=== PATIENT | female | born 1935 | race Caucasian/White ===

== ENCOUNTER → 2016-09-18 | Outpatient (REF) | payer MEDICARE ==
[2016-09-18 11:44] LABS: BASO % 0.5 % (0.0-1.0); EOS # 0.1 K/mm3 (0.0-0.50); LARGE UNSTAINED CELL # 0.1 K/mm3 (0.0-0.4); LARGE UNSTAINED CELL % 1.5 % (0.0-4.0); LYMPH # 1.7 K/mm3 (1.5-4.5); MEAN CORPUSCULAR HEMOGLOBIN 19.4 pg (27.0-33.0); MEAN CORPUSCULAR HGB CONC 30.5 g/dl (32.0-36.5); MEAN CORPUSCULAR VOLUME 63.6 fl (80.0-96.0); MONO # 0.4 K/mm3 (0.0-0.8); MONO % 5.2 % (0.0-5.0); NEUTROPHILS # 4.8 K/mm3 (1.8-7.7); NEUTROPHILS % 66.9 % (36.0-66.0); PLATELET COUNT, AUTOMATED 303 k/mm3 (150-450); RED CELL DISTRIBUTION WIDTH 13.9 % (11.5-14.5); WHITE BLOOD COUNT 7.2 K/mm3 (4.0-10.0)
[2016-09-18 11:50] LABS: ADD MORPHOLOGY? YES
[2016-09-18 12:02] LABS: ALBUMIN/GLOBULIN RATIO 1.25 (1.00-1.93); ALKALINE PHOSPHATASE 86 U/L (45-117); ALT/SGPT 27 U/L (12-78); ANION GAP 9 MEQ/L (8-16); AST/SGOT 26 U/L (15-37); BILIRUBIN,TOTAL 0.4 MG/DL (0.2-1.0); BLOOD UREA NITROGEN 15 MG/DL (7-18); CALCIUM LEVEL 9.6 MG/DL (8.8-10.2); CARBON DIOXIDE LEVEL 29 MEQ/L (21-32); CHLORIDE LEVEL 104 MEQ/L (98-107); CREATININE FOR GFR 0.73 MG/DL (0.55-1.02); GLOMERULAR FILTRATION RATE > 60.0 (>32); GLUCOSE, FASTING 117 MG/DL (83-110); POTASSIUM SERUM 4.4 MEQ/L (3.5-5.1); SODIUM LEVEL 142 MEQ/L (136-145); TOTAL PROTEIN 7.2 GM/DL (6.4-8.2)
[2016-09-18 12:09] LABS: HYPOCHROMASIA 1+; MICROCYTOSIS 3+
== END ==
LOC: M SFHCCLAY 08:36
PROVIDERS: ATTEND Family Medicine
DX: D56.9 Thalassemia, unspecified (principal); I10 Essential (primary) hypertension
CPT/HCPCS: 80053; 83540; 85025; G0463

== ENCOUNTER 2017-01-15 18:29 | Inpatient (IN) | payer MEDICARE ==
[~2017-01-15] VITALS: Ht 152.4 cm; Wt 83.5 kg
[2017-01-15] MEDS ORDERED: LISI2.5T3 PO (18:41)
[2017-01-15] MEDS ORDERED: HYDR-3713 PO (18:41)
[2017-01-15] MEDS ORDERED: METO50TA7 PO (18:41)
--- NOTE | 2017-01-15 19:32 | REP ---
CHEST, TWO VIEWS: COMPARISON: 01/11/2013 Two views of the chest are performed and demonstrate infiltrate in right middle lobe. There appears to be a small right pleural effusion as well. Heart is normal in size. There is some calcification of the thoracic aorta. The mediastinal silhouette is otherwise unremarkable. There is osteopenia with mild degenerative changes of the spine. IMPRESSION: Right middle lobe infiltrate. Small right effusion. Followup to resolution is recommended. Signed by Navarro Finn MD 01/15/2017 08:20 P
[2017-01-15 20:16] LABS: BASO % 0.3 % (0.0-1.0); EOS # 0.2 K/mm3 (0.0-0.50); EOS % 1.5 % (0.0-3.0); LARGE UNSTAINED CELL # 0.2 K/mm3 (0.0-0.4); LARGE UNSTAINED CELL % 1.6 % (0.0-4.0); LYMPH # 2.4 K/mm3 (1.5-4.5); LYMPH % 14.6 % (24.0-44.0); MEAN CORPUSCULAR HEMOGLOBIN 19.9 pg (27.0-33.0); MEAN CORPUSCULAR HGB CONC 32.2 g/dl (32.0-36.5); MEAN CORPUSCULAR VOLUME 61.6 fl (80.0-96.0); MONO # 1.2 K/mm3 (0.0-0.8); MONO % 8.2 % (0.0-5.0); NEUTROPHILS % 73.8 % (36.0-66.0); PLATELET COUNT, AUTOMATED 289 k/mm3 (150-450); RED CELL DISTRIBUTION WIDTH 13.2 % (11.5-14.5); WHITE BLOOD COUNT 14.8 K/mm3 (4.0-10.0)
[2017-01-15 20:22] LABS: ANION GAP 7 MEQ/L (8-16); BLOOD UREA NITROGEN 13 MG/DL (7-18); CARBON DIOXIDE LEVEL 27 MEQ/L (21-32); CHLORIDE LEVEL 97 MEQ/L (98-107); CREATININE FOR GFR 0.56 MG/DL (0.55-1.02); GLOMERULAR FILTRATION RATE > 60.0 (>32); GLUCOSE, FASTING 131 MG/DL (83-110); POTASSIUM SERUM 4.2 MEQ/L (3.5-5.1); SODIUM LEVEL 131 MEQ/L (136-145)
[2017-01-15 20:51] LABS: ADD MORPHOLOGY? YES; ERYTHROCYTE SEDIMENTATION RATE 46 mm/hr (0-30)
[2017-01-15] MEDS ORDERED: AZITHROMYCIN INJ 500 MG, VIAL MATE ADAPTER 1 EACH in D5W 250 ML IV ONE (21:15)
[2017-01-15] MEDS ORDERED: cefTRIAXone SOD 1 GM in D5W MINI-BAG PLUS 50 ML IV ONE (21:15)
[2017-01-15 21:25] LABS: HYPOCHROMASIA 1+; MICROCYTOSIS 4+
[2017-01-15] MEDS ORDERED: SYST1SOL OU (22:01)
[2017-01-15] MEDS ORDERED: hydrALAZINE INJ 20 MG/ML VIAL IV ONE (22:15)
[2017-01-15] MEDS ORDERED: ONDANSETRON 4MG/2ML VIAL (J2405) IV PRN (22:15)
[2017-01-15] MEDS ORDERED: PERCOCET 5MG/325MG TAB PO PRN (22:15)
[2017-01-15] MEDS ORDERED: POLYVINYL ALCOHOL OPHTH SOLN 15 ML(LIQUITEARS) OU PRN (22:15)
[2017-01-15] MEDS ORDERED: MORPHINE 2 MG/ML 1ML SYRINGE IV PRN (22:15)
[2017-01-15] MEDS ORDERED: NS 1,000 ML IV SCH (22:30)
--- NOTE | 2017-01-15 23:01 | HPE ---
DATE OF ADMISSION: 01/15/2017 PRIMARY CARE PROVIDER: Dr. Basilio Sood CHIEF COMPLAINT: Fevers, chills, coughing. HISTORY OF THE PRESENT ILLNESS This is an 81-year-old female patient with underlying medical history of hypertension, thalassemia, presented to the hospital with a two-day history of fevers and chills, generalized weakness and tiredness. Temperature taken at home of 101.3. Also reported since Wednesday with a cough productive of clear sputum with nasal congestion. Patient recently on Wednesday had a procedure on the right middle finger done for some soft nodule removal, was not under general anesthesia and the area seemed not to be worsened with worsening swelling or pain, or redness. The patient also a week ago had eye surgery for macular degeneration, right eye, and since then has been doing well. The patient also reported some myalgia, reported stuffy nose. Denies any sick contacts, recent travel. Procedure that was done on Wednesday for the finger was elective. Generally, the patient has been healthy at baseline, in no acute distress, taking some Tylenol at home. Denies any chest pain, pressure or discomfort. Denies palpitations. Denies a history of coronary artery disease or cerebrovascular disease. ALLERGIES: AMOXICILLIN and PENICILLIN. PAST MEDICAL HISTORY: Hypertension, thalassemia. PAST SURGICAL HISTORY: Right kidney pyeloplasty in 1986, right hand middle finger surgery that was recent on Wednesday and eye surgery, right eye, macular degeneration. FAMILY HISTORY: Father at age 75 secondary to motor vehicle accident, with also diabetes. Mother at 72 years old from uterine cancer. SOCIAL HISTORY: The patient lives at home with family, quit smoking in 1979, drinks a cup of wine once daily. Denies any history of drinking problem or alcohol withdrawal. Denies any illicit drug use. Currently retired REVIEW OF SYSTEMS: Reported cough, fevers, chills, fatigue. All other review of systems are negative. HOME MEDICATIONS: - acetaminophen/hydrocodone 5/325 every 6 hours as needed - lisinopril 2.5 mg by mouth daily - metoprolol 50 mg by mouth daily - Systane eye drops as needed PHYSICAL EXAMINATION: VITAL SIGNS: Temperature 99.1, pulse 72, respirations 16, blood pressure 203/84, pulse oximetry 94% on room air. GENERAL: Patient alert and oriented times three, in no acute distress, pleasant. HEENT: Normocephalic, atraumatic. Left-sided facial droop intermittently, as per family has been chronic. No other facial symmetry. Cranial nerves II-XII grossly intact. PULMONARY: Right-sided mild rhonchi. No wheeze. CARDIAC: Regular rate and rhythm. Normal S1, S2. ABDOMEN: Soft, nontender. Positive bowel sounds. EXTREMITIES: No edema bilateral lower extremities. NEUROLOGIC: Able to move all four extremities. Strength 5/5 bilateral upper and lower. Cranial nerves: Other than intermittent left-sided facial droop, all other cranial nerves have been negative. As per family, the left-sided facial droop has been chronic. X-ray shows right middle lobe infiltrates, small pleural effusion. LABORATORY: WBC 14.8, hemoglobin and hematocrit 10.7/33.1, platelets 289. Chemistry: Sodium 131, potassium 4.2, chloride 97, bicarbonate 27, BUN 13, creatinine 0.56, lactic acid 1, C-reactive protein 14.8. UA negative. ASSESSMENT AND PLAN: This is an 81-year-old female patient with underlying medical history of hypertension, thalassemia, admitted with fevers, healthcare-associated bacterial pneumonia. PROBLEMS: 1. Right-sided healthcare-associated bacterial pneumonia with fevers and leukocytosis. Fevers at home of 101.3. Sepsis. IV fluids for gentle hydration. Lactic acid appreciated. Blood culture, sputum culture, UA appreciated. Given recent procedures, will place the patient on azithromycin, cefepime and vancomycin, methicillin-resistant Staphylococcus aureus (MRSA) screening, respiratory panel. Followup C-reactive protein. 2. Hypertensive urgency. As per family, the patient's baseline blood pressure is running at 160/80. Will give one dose of hydralazine IV, goal blood pressure of 160/80 for the next 24 hours. Increase lisinopril to 2.5 mg by mouth twice a day , metoprolol 25 mg by mouth twice a day, adjust as needed. Hydralazine 10 mg IV given in the emergency room. Continue to monitor. 3. Thalassemia. Continue to monitor. Outpatient followup. 4. Recent right middle finger surgery. Right middle finger has been examined.Only mildly swollen, no erythema, no exudate. Will get x-ray for further evaluation. Currently likely not the source of infection. Will continue to monitor closely. Treatment for pneumonia as above. 5. Deep vein thrombosis (DVT) prophylaxis. Lovenox subcu. DISPOSITION PLANNING: Pending clinical improvement, cultures. MTDD
--- NOTE | 2017-01-15 23:06 | PHACANCOPD ---
PHARMACY VANCOMYCIN DOSING Pt Demographics Demographics Patient Age:81 , Weight:70.400 , Gender: female Adjusted Body Weight Date: 01/15/17, Adjusted Body Weight: [70.4] Kg Events Past 24 Hours Events Past 24 Hours: NO: Dialysis, Diuretic Therapy, Change in CrCl, Fever, Elevation in WBC, Pending Diagnostics, Pending Procedures, Other Vancomycin Vancomycin indication: HCAP Vancomycin Target Ranges: 15-20 mcg/ml Vancomycin Load Y/N: Yes Load Dose Date Time Vancomycin Load Dose: 1.5G IV Date: 01/16/17 Time: 00:00 Vancomycin Dose Date: 01/15/17. Current Vancomycin Dose: [1G IV Q12H @12:00] Intermittent Dosing?: No Labs Labs Item Value Date Time White Blood Count 14.8 K/mm3 H 01/15/171948 Neutrophils (%) (Auto) 73.8 % H 01/15/171948 Creatinine 0.56 MG/DL 01/15/171948 Vital Signs Label Value Date Time Patient Temperature 99.1 degrees F 01/15/172100 Temperature Source Temporal 01/15/172100 Blood Pressure Assessment 203/84 (123) 01/15/172100 Source Automatic Cuff (NIBP) Micro Microbiology 01/15/17 Blood Culture, Received Pending 01/15/17 Blood Culture, Received Pending 01/15/17 Urine Culture, Received Pending Creatinine Clearance Date:01/15/17. Creatinine Clearance: [59.5ML/MIN]. Pending Labs URINE AND BLOOD CULTURES Assessment and Plan Maintaining Current Dose?: Yes Reason for dose change: No Dose Change Pharmacist Note Pharmacist Note Date: 01/15/17. Pharmacist note: PT is an 81 year old female being treated for HCAP goal trough 15-20mcg/ml. Pt has no history of vancomycin therapy here at [facility] in the past. Pt is also being treated with azithromycin 500mg iv q24h and cefepime 2g iv q12h. To achieve goal trough a 1.5g loading dose was started at 00:00 and will be followed with maintenance dosing of 1g iv q12h @12:00 . We will continue to monitor and adjust dose as needed. [facility] Jan 15, 2017 23:06
[2017-01-15] MEDS: ACETAMINOPHEN TAB 650MG DOSE (2X325MG) PO PRN (23:53)
[2017-01-16] MEDS ORDERED: VANCOMYCIN HCL 500 MG in D5W MINI-BAG PLUS 100 ML IV ONE (01:00)
[2017-01-16] MEDS: VANCOMYCIN HCL 1,000 MG, VIAL MATE ADAPTER 1 EACH in D5W 250 ML IV SCH ×2 (01:13→12:00)
[2017-01-16] MEDS: LISINOPRIL *2.5 MG* TAB PO SCH ×3 (01:14→21:51)
[2017-01-16 01:15] VITALS: BP 136/64
[2017-01-16 06:00] VITALS: BP 129/62
[2017-01-16 06:57] LABS: MEAN CORPUSCULAR HEMOGLOBIN 19.9 pg (27.0-33.0); MEAN CORPUSCULAR HGB CONC 32.3 g/dl (32.0-36.5); MEAN CORPUSCULAR VOLUME 61.5 fl (80.0-96.0); WHITE BLOOD COUNT 13.7 K/mm3 (4.0-10.0)
[2017-01-16 07:07] LABS: ANION GAP 5 MEQ/L (8-16); BLOOD UREA NITROGEN 15 MG/DL (7-18); CALCIUM LEVEL 8.3 MG/DL (8.8-10.2); CARBON DIOXIDE LEVEL 28 MEQ/L (21-32); CHLORIDE LEVEL 97 MEQ/L (98-107); CREATININE FOR GFR 0.76 MG/DL (0.55-1.02); GLOMERULAR FILTRATION RATE > 60.0 (>32); GLUCOSE, FASTING 131 MG/DL (83-110); MAGNESIUM LEVEL 2.3 MG/DL (1.8-2.4); POTASSIUM SERUM 3.9 MEQ/L (3.5-5.1); SODIUM LEVEL 130 MEQ/L (136-145)
[2017-01-16] MEDS: guaiFENesin ER 600 MG TAB PO SCH ×2 (08:52→20:22)
[2017-01-16] MEDS: LACTOBACILLUS ACIDOPHILUS CAP (BACID) PO SCH ×3 (08:52→17:52)
[2017-01-16] MEDS: SENOKOT S TAB PO SCH ×2 (08:52→20:22)
[2017-01-16] MEDS: METOPROLOL TART 25 MG TABLET PO SCH ×2 (08:52→21:51)
[2017-01-16] MEDS: ENOXAPARIN 40 MG/0.4 ML SYRINGE (J1650) SC SCH ×2 (08:53→09:09)
[2017-01-16] MEDS: CEFEPIME HCL 2 GM in D5W MINI-BAG PLUS 50 ML IV SCH ×2 (08:53→21:52)
[2017-01-16] MEDS: ACETAMINOPHEN TAB 650MG DOSE (2X325MG) PO PRN ×2 (12:01→20:23)
[2017-01-16 14:00] VITALS: BP 128/57
--- NOTE | 2017-01-16 14:24 | REP ---
RIGHT HAND SERIES: Four views of the right hand are performed. There is no acute fracture or dislocation. There is mild diffuse narrowing of the metacarpophalangeal joints and interphalangeal joints. No osseous destruction is seen. IMPRESSION: Mild degenerative changes. Signed by Navarro Finn MD 01/16/2017 03:22 P
--- NOTE | 2017-01-16 20:04 | ECGEPIP ---
Stationary ECG Study [facility] - ED Test Date: 2017-01-15 Pat Name: ALINE GUTIERREZ Department: Room: [place] [address] Gender: F Cancer Registry Coordinator: ronit : 1935 Requested By: NIRANJAN SANDERS Order Number: [id number] Reading MD: Laura Monteiro Measurements Intervals [place] Rate: 100 P: 49 GA: 140 QRS: -35 QRSD: 130 T: 130 QT: 353 QTc: 456 Interpretive Statements SINUS TACHYCARDIA POSSIBLE LEFT ATRIAL ENLARGEMENT MARKED LEFT AXIS DEVIATION LEFT BUNDLE BRANCH BLOCK NO PRIOR FOR COMPARISON Electronically Signed On 01-16-2017 20:04:08 EDT by Laura Monteiro
[2017-01-16 22:00] VITALS: BP 132/61
[2017-01-16] MEDS ORDERED: AZITHROMYCIN INJ 500 MG, VIAL MATE ADAPTER 1 EACH in D5W 250 ML IV SCH (23:00)
[2017-01-17] MEDS: VANCOMYCIN HCL 1,000 MG, VIAL MATE ADAPTER 1 EACH in D5W 250 ML IV SCH ×3 (00:06→20:31)
[2017-01-17 06:00] VITALS: BP 163/68
[2017-01-17 06:50] LABS: MEAN CORPUSCULAR HEMOGLOBIN 19.6 pg (27.0-33.0); MEAN CORPUSCULAR HGB CONC 31.5 g/dl (32.0-36.5); MEAN CORPUSCULAR VOLUME 62.2 fl (80.0-96.0); RED CELL DISTRIBUTION WIDTH 12.8 % (11.5-14.5); WHITE BLOOD COUNT 12.7 K/mm3 (4.0-10.0)
[2017-01-17 07:12] LABS: ANION GAP 7 MEQ/L (8-16); BLOOD UREA NITROGEN 14 MG/DL (7-18); CALCIUM LEVEL 8.5 MG/DL (8.8-10.2); CARBON DIOXIDE LEVEL 26 MEQ/L (21-32); CHLORIDE LEVEL 97 MEQ/L (98-107); CREATININE FOR GFR 0.57 MG/DL (0.55-1.02); GLOMERULAR FILTRATION RATE > 60.0 (>32); GLUCOSE, FASTING 132 MG/DL (83-110); MAGNESIUM LEVEL 2.4 MG/DL (1.8-2.4); POTASSIUM SERUM 4.3 MEQ/L (3.5-5.1); SODIUM LEVEL 130 MEQ/L (136-145)
[2017-01-17] MEDS ORDERED: ALBUTEROL SULFATE 2.5 MG/0.5 ML INH NEB SOLN INH PRN (07:30)
[2017-01-17] MEDS: ALBUTEROL SULFATE 2.5 MG/0.5 ML INH NEB SOLN INH SCH ×4 (08:10→19:32)
[2017-01-17 08:16] VITALS: O2SAT 95
[2017-01-17] MEDS: guaiFENesin ER 600 MG TAB PO SCH ×2 (08:57→20:31)
[2017-01-17] MEDS: METOPROLOL TART 25 MG TABLET PO SCH ×2 (08:57→20:31)
[2017-01-17] MEDS: LACTOBACILLUS ACIDOPHILUS CAP (BACID) PO SCH ×3 (08:57→17:34)
[2017-01-17] MEDS: LISINOPRIL *2.5 MG* TAB PO SCH ×2 (08:57→20:31)
[2017-01-17] MEDS: ENOXAPARIN 40 MG/0.4 ML SYRINGE (J1650) SC SCH (08:58)
[2017-01-17] MEDS: SENOKOT S TAB PO SCH ×2 (08:58→20:31)
--- NOTE | 2017-01-17 09:29 | IPN ---
DATE: 01/16/2017 Ms. Quiroz is feeling much better this morning. She has no complaints. She is going to eat this morning. She walked herself to the bathroom and got into bed with minimal assistance in my presence. Temperature is 96.6, pulse 62, respiratory rate 18, blood pressure 129/62, and 97% on 2 liters. Ins and outs notable for a positive fluid balance of 530 at this point. Weight is 76.2 kg with a body mass index of 32.8. She is awake, appropriately interactive, somewhat hard of hearing, but wearing hearing aids. Neck supple. Breathing is symmetrical. Somewhat crackly in the right base. Heart: Normal S1, S2. She has a systolic blowing murmur noted. Abdomen soft, doughy, nontender. White cell count 13.7, hemoglobin 9.7, and platelets of 269. BUN 15, creatinine 0.76, sodium 130, CRP 14.4. ASSESSMENT: 81-year-old with a pneumonia which could possibly be health care associated pneumonia based on her recent contact with health care regarding her hand surgery and her ophthalmologic procedure. Continue with broad spectrum antibiotics. Await culture results. I believe we will be able to pull those back to community acquired coverage based on her rate of improvement. The patient had elevated blood pressure. Will monitor her clinically. This is most likely related to her illness. The patient has thalassemia. The patient has had recent right middle finger surgery. The wound is clean, dry and intact. There is no drainage. The patient has appropriate deep vein thrombosis (DVT) prophylaxis. HARVINDER
[2017-01-17] MEDS: CEFEPIME HCL 2 GM in D5W MINI-BAG PLUS 50 ML IV SCH ×2 (10:09→22:58)
[2017-01-17] MEDS: ACETAMINOPHEN TAB 650MG DOSE (2X325MG) PO PRN ×2 (12:10→20:31)
--- NOTE | 2017-01-17 12:19 | REP ---
CHEST, TWO VIEWS: Two views of the chest are performed and compared to prior study of 01/15/2017. Infiltrate in the medial right lung base is unchanged. There again appears to be a small right pleural effusion. No new infiltrate is seen on the left. Heart is normal in size. There is mild calcification of the thoracic aorta. There are mild degenerative changes of the spine. IMPRESSION: No change in right basilar infiltrate and small right effusion. Signed by Navarro Finn MD 01/17/2017 07:28 P
[2017-01-17 14:00] VITALS: BP 128/86
[2017-01-17 21:00] VITALS: BP 153/70
[2017-01-18 06:00] VITALS: BP 169/70
[2017-01-18 06:44] LABS: MEAN CORPUSCULAR HEMOGLOBIN 19.8 pg (27.0-33.0); MEAN CORPUSCULAR HGB CONC 31.7 g/dl (32.0-36.5); MEAN CORPUSCULAR VOLUME 62.5 fl (80.0-96.0); RED CELL DISTRIBUTION WIDTH 13.1 % (11.5-14.5); WHITE BLOOD COUNT 11.3 K/mm3 (4.0-10.0)
[2017-01-18 06:53] LABS: ANION GAP 4 MEQ/L (8-16); BLOOD UREA NITROGEN 12 MG/DL (7-18); CALCIUM LEVEL 8.7 MG/DL (8.8-10.2); CARBON DIOXIDE LEVEL 28 MEQ/L (21-32); CHLORIDE LEVEL 99 MEQ/L (98-107); CREATININE FOR GFR 0.59 MG/DL (0.55-1.02); GLOMERULAR FILTRATION RATE > 60.0 (>32); GLUCOSE, FASTING 122 MG/DL (83-110); MAGNESIUM LEVEL 2.5 MG/DL (1.8-2.4); POTASSIUM SERUM 4.4 MEQ/L (3.5-5.1); SODIUM LEVEL 131 MEQ/L (136-145)
[2017-01-18] MEDS: ENOXAPARIN 40 MG/0.4 ML SYRINGE (J1650) SC SCH (09:00)
[2017-01-18] MEDS: LACTOBACILLUS ACIDOPHILUS CAP (BACID) PO SCH ×3 (09:32→18:09)
[2017-01-18] MEDS: SENOKOT S TAB PO SCH ×2 (09:32→20:59)
[2017-01-18] MEDS: LISINOPRIL *2.5 MG* TAB PO SCH ×2 (09:33→20:58)
[2017-01-18] MEDS: guaiFENesin ER 600 MG TAB PO SCH ×2 (09:33→20:58)
[2017-01-18] MEDS: METOPROLOL TART 25 MG TABLET PO SCH ×2 (09:33→20:59)
[2017-01-18] MEDS: VANCOMYCIN HCL 1,000 MG, VIAL MATE ADAPTER 1 EACH in D5W 250 ML IV SCH ×2 (09:36→20:59)
[2017-01-18] MEDS: CEFEPIME HCL 2 GM in D5W MINI-BAG PLUS 50 ML IV SCH ×2 (10:50→23:19)
--- NOTE | 2017-01-18 11:28 | IPN ---
DATE OF SERVICE: 01/17/2017 Ms. Quiroz is feeling tired today. She does not feel better than yesterday but certainly does not feel worse. Certainly feels better than at time of presentation. Was not very comfortable last night. Temperature is 98.3, pulse 90, respiratory rate 18, blood pressure 163/68, 98% on room air. Intake and output notable for a positive fluid balance of 895. No bowel movements noted. Weight is 88.4 kg. She is awake, pleasantly conversant. Head is normocephalic. Breathing is symmetrical. There are crackles in both bases. No wheezes. No respiratory distress. Speaking in complete sentences. Heart: Is distant sounding. Normal S1, S2. Abdomen soft, doughy, nontender. White cell count 12.7, hemoglobin 9.5, and platelets of 297. BUN 14, creatinine 0.56. Sodium is 130, C-reactive protein is stable at 14.6. Sputum was obtained today. Repeat chest x-ray shows no findings on the left but a right basilar infiltrate and small right effusion. My assessment is as follows: This is an 81-year-old with pneumonia, which is possibly healthcare but more likely community-acquired pneumonia. The plan will be as follows: 1. Infectious disease. The patient is continued on broad-spectrum antibiotics due to the possibility of healthcare-associated pneumonia. Await sputum results and monitor her clinical status. She does not seem significantly improved today from yesterday. She may have malclearance of secretions. I have ordered an acapella device and respiratory therapy as a trial. She is not actively wheezing, though. 2. The patient had elevated blood pressure, which continues at this point. She is continued on lopressor and lisinopril. 3. The patient has right middle finger surgery recently. The wound continues to be clean, dry, intact with no drainage. 4. The patient has thallasemia. 5. The patient has appropriate deep vein thrombosis (DVT) prophylaxis.
[2017-01-18] MEDS: ALBUTEROL SULFATE 2.5 MG/0.5 ML INH NEB SOLN INH SCH ×3 (11:33→19:52)
[2017-01-18 14:00] VITALS: BP 153/67
[2017-01-18] MEDS: ACETAMINOPHEN TAB 650MG DOSE (2X325MG) PO PRN (16:31)
--- NOTE | 2017-01-18 21:51 | IPN ---
DATE: 01/18/2017 Ms. Quiroz is feeling much better today. She has increased energy and is looking forward to getting home. She has tolerated diet. She has walked laps in the grover with assistance. Temperature is 97.7, pulse 74, respiratory rate 18, blood pressure 169/70, 98% on 2 liters. Intake and output notable for a negative fluid balance of -270, no bowel movements thus far noted. She is awake, appropriately interactive, pleasantly conversant, hard of hearing but wearing hearing aids. Mucous membranes are moist. Neck is supple. Breathing is symmetrical, diminished in the bilateral bases. No wheezes, rales, or rhonchi. Heart is distant sounding, normal S1, S2. Abdomen soft, doughy, nontender. White cell count 11.3, hemoglobin 9.5, and platelets of 341. BUN 12, creatinine 0.59, sodium is 131. Gram stain is pending. Blood cultures are negative at 48 hours. My assessment is as follows: This is an 81-year-old with pneumonia, possibly healthcare-associated pneumonia, but more likely community-acquired pneumonia. Awaiting sputum return. Plan will be as follows: 1. Infectious disease. Blood culture is negative. Patient generally improving on broad-spectrum antibiotics. Will adjust antibiotics to cover community-acquired pneumonia when sputum returns and based on patient's exposure to healthcare setting recently, would likely discharge the patient on Omnicef that could even be trialed in the hospital prior to discharge. 2. The patient has elevated blood pressure and is on Lopressor and lisinopril. Will continue to monitor her clinically. 3. The patient has recent right middle finger surgery. Wound is clean, dry, and intact without drainage. 4. The patient has thalassemia with an incredibly low mean corpuscular volume (MCV). 5. The patient has appropriate deep venous thrombosis (DVT) prophylaxis. 6. Hyponatremia. Repeating labs. Patient's family at bedside. HARVINDER
[2017-01-18 22:00] VITALS: BP 154/68
[2017-01-18] MEDS: AZELASTINE 137MCG NASAL SPY 30 ML (ASTELIN) SCH (22:12)
[2017-01-19 06:00] VITALS: BP 123/62
[2017-01-19 07:07] LABS: MEAN CORPUSCULAR HEMOGLOBIN 19.9 pg (27.0-33.0); MEAN CORPUSCULAR HGB CONC 32.2 g/dl (32.0-36.5); MEAN CORPUSCULAR VOLUME 61.9 fl (80.0-96.0); RED CELL DISTRIBUTION WIDTH 13.2 % (11.5-14.5); WHITE BLOOD COUNT 11.3 K/mm3 (4.0-10.0)
[2017-01-19 07:35] LABS: ANION GAP 5 MEQ/L (8-16); BLOOD UREA NITROGEN 11 MG/DL (7-18); CALCIUM LEVEL 8.7 MG/DL (8.8-10.2); CARBON DIOXIDE LEVEL 29 MEQ/L (21-32); CHLORIDE LEVEL 100 MEQ/L (98-107); CREATININE FOR GFR 0.54 MG/DL (0.55-1.02); GLOMERULAR FILTRATION RATE > 60.0 (>32); GLUCOSE, FASTING 115 MG/DL (83-110); MAGNESIUM LEVEL 2.4 MG/DL (1.8-2.4); POTASSIUM SERUM 4.6 MEQ/L (3.5-5.1); SODIUM LEVEL 134 MEQ/L (136-145)
[2017-01-19] MEDS: ALBUTEROL SULFATE 2.5 MG/0.5 ML INH NEB SOLN INH SCH ×4 (07:45→19:28)
[2017-01-19] MEDS: ENOXAPARIN 40 MG/0.4 ML SYRINGE (J1650) SC SCH ×2 (09:00→09:10)
[2017-01-19] MEDS: LISINOPRIL *2.5 MG* TAB PO SCH ×2 (09:09→21:15)
[2017-01-19] MEDS: SENOKOT S TAB PO SCH ×2 (09:09→21:00)
[2017-01-19] MEDS: guaiFENesin ER 600 MG TAB PO SCH ×2 (09:10→21:14)
[2017-01-19] MEDS: LACTOBACILLUS ACIDOPHILUS CAP (BACID) PO SCH ×3 (09:10→17:43)
[2017-01-19] MEDS: METOPROLOL TART 25 MG TABLET PO SCH ×2 (09:10→21:14)
[2017-01-19] MEDS: DOXYCYCLINE HYCLATE 100 MG TAB PO SCH ×2 (09:16→21:13)
[2017-01-19] MEDS: CEFEPIME HCL 2 GM in D5W MINI-BAG PLUS 50 ML IV SCH ×2 (10:44→21:15)
--- NOTE | 2017-01-19 13:01 | IPNPDOC ---
Subjective Date Seen The patient was seen on 01/19/17. Subjective Chief Complaint/HPI The patient is a 81-year-old female admitted with a reason for visit of Hcap ( Healthcare Associated Pneumonia). General: Denies: ROS Unobtainable, Chills, Night Sweats, Fatigue, Malaise, Normal Appetite, Other Symptoms Constitutional: Denies: Chills, Fever, Malaise, Night Sweats, Weakness, Fatigue , Weight Loss, Lethargy, Other Eyes: Denies: Pain, Vision change, Conjunctivae inflammation, Eyelid inflammation, Redness, Other ENT: Denies: Head Aches, Ear Pain, Dysphagia, Sinus Congestion, Post Nasal Drip , Sore Throat, Epistaxis, Other Symptoms Skin: Denies: Rash, Lesions, Jaundice, Bruising, Itching, Dry, Breakdown, Nail Changes, Other Pulmonary: Reports: Cough, Denies: Dyspnea, Pleuritic Chest Pain, Other Symptoms Cardiovascular: Denies: Chest Pain, Palpitations, Orthopnea, Paroxysmal Noc. Dyspnea, Edema, Lt Headedness, Other Symptoms Gastrointestinal: Denies: Nausea, Vomiting, Abdominal Pain, Diarrhea, Constipation, Melena, Hematochezia, Other Symptoms Genitourinary: Denies: Dysuria, Frequency, Incontinence, Hematuria, Retention, Other Symptoms Objective Physical Examination General Exam: Positive: Alert, Cooperative, No Acute Distress Eye Exam: Positive: Conjunctiva & lids normal ENT Exam: Positive: Atraumatic Chest Exam: Positive: Clear to auscultation, Normal air movement Heart Exam: Positive: Rate Normal, Regular Rhythm Abdomen Exam: Positive: Normal bowel sounds, Soft, Negative: Tenderness Extremity Exam: Negative: Edema Psych Exam: Positive: Oriented x 3 Assessment /Plan Problems (1) HCAP (healthcare-associated pneumonia) Status: Acute Response to Treatment: Progressing Discussed With: Patient Problem Specific Plan: Monitor Clinically, Repeat Tests Problem Text: DC Vanco, start doxy for MRSA coverage. MRSA screen pending. Continue cefepime for now. Likely d/c home 24 hours with oral abx. (2) HTN (hypertension) Status: Chronic (3) Thalassemia Status: Chronic Plan/VTE VTE Prophylaxis Ordered?: Yes Plan Diet: Continue Current Activity: Continue Current Medications: Change to PO Diagnostics: Obtain Cultures Anticipated Discharge: Home, Home With Services VS[facility]O Vital Signs Date Time Temp Pulse Resp B/P (MAP) Pulse Ox O2 Delivery O2 Flow Rate FiO2 01/19/17 09:10 98 123/62 01/19/17 07:40 Room Air 01/19/17 06:00 97.8 17 99 01/18/17 08:00 I&O- Last 24 Hours up to 6 AM 01/19/17 05:59 Intake Total 840 ml Output Total 1300 ml Balance -460 ml Laboratory Data 24H LABS Laboratory Tests 2 01/19/17 06:33: Anion Gap 5L, Glomerular Filtration Rate > 60.0, Blood Urea Nitrogen 11, Creatinine 0.54L, Sodium Level 134L, Potassium Level 4.6, Chloride Level 100, Carbon Dioxide Level 29, Calcium Level 8.7L, Magnesium Level 2.4, C-Reactive Protein, Quantitative 9.88H CBC/BMP Laboratory Tests 01/19/17 06:33 Red Blood Count 4.79, Mean Corpuscular Volume 61.9 L, Mean Corpuscular Hemoglobin 19.9 L, Mean Corpuscular Hemoglobin Concent 32.2, Red Cell Distribution Width 13.2, Calcium Level 8.7 L Microbiology Microbiology 01/15/17 Blood Culture - Preliminary, Resulted No Growth after 72 hours. All specime... 01/15/17 Blood Culture - Preliminary, Resulted No Growth after 72 hours. All specime... 01/17/17 Gram Stain - Final, Complete 01/17/17 Sputum Culture - Final, Complete 01/15/17 Respiratory Virus Panel (PCR) ([facility]) - Final, Complete 01/15/17 Urine Culture - Final, Complete BARBARA CASTRO MD Jan 19, 2017 13:01
[2017-01-19 14:00] VITALS: BP 162/68
[2017-01-19] MEDS: AZELASTINE 137MCG NASAL SPY 30 ML (ASTELIN) SCH (21:15)
[2017-01-19 22:00] VITALS: BP 130/72
[2017-01-20 06:00] VITALS: BP 156/86
[2017-01-20 06:45] LABS: MEAN CORPUSCULAR HEMOGLOBIN 19.4 pg (27.0-33.0); MEAN CORPUSCULAR HGB CONC 31.2 g/dl (32.0-36.5); RED CELL DISTRIBUTION WIDTH 13.2 % (11.5-14.5); WHITE BLOOD COUNT 11.3 K/mm3 (4.0-10.0)
[2017-01-20 06:53] LABS: ANION GAP 7 MEQ/L (8-16); BLOOD UREA NITROGEN 11 MG/DL (7-18); CALCIUM LEVEL 8.6 MG/DL (8.8-10.2); CARBON DIOXIDE LEVEL 29 MEQ/L (21-32); CHLORIDE LEVEL 99 MEQ/L (98-107); CREATININE FOR GFR 0.59 MG/DL (0.55-1.02); GLOMERULAR FILTRATION RATE > 60.0 (>32); GLUCOSE, FASTING 116 MG/DL (83-110); MAGNESIUM LEVEL 2.3 MG/DL (1.8-2.4); POTASSIUM SERUM 4.1 MEQ/L (3.5-5.1); SODIUM LEVEL 135 MEQ/L (136-145)
[2017-01-20] MEDS: ALBUTEROL SULFATE 2.5 MG/0.5 ML INH NEB SOLN INH SCH (07:53)
[2017-01-20] MEDS ORDERED: MUCI600T31 PO (08:01)
[2017-01-20] MEDS ORDERED: DOXY100T2 PO (08:01)
[2017-01-20] MEDS: ENOXAPARIN 40 MG/0.4 ML SYRINGE (J1650) SC SCH (09:00)
[2017-01-20] MEDS: SENOKOT S TAB PO SCH (09:10)
[2017-01-20] MEDS: METOPROLOL TART 25 MG TABLET PO SCH (09:10)
[2017-01-20] MEDS: DOXYCYCLINE HYCLATE 100 MG TAB PO SCH (09:10)
[2017-01-20] MEDS: guaiFENesin ER 600 MG TAB PO SCH (09:10)
[2017-01-20] MEDS: LACTOBACILLUS ACIDOPHILUS CAP (BACID) PO SCH (09:10)
[2017-01-20 09:11] VITALS: BP 156/86
[2017-01-20] MEDS: LISINOPRIL *2.5 MG* TAB PO SCH (09:11)
[2017-01-20] MEDS: CEFEPIME HCL 2 GM in D5W MINI-BAG PLUS 50 ML IV SCH (09:12)
--- NOTE | 2017-01-20 11:13 | DS.PDOC ---
Discharge Summary General Date of Admission Jan 15, 2017 at 22:15 Date of Discharge 01/20/17 Discharge Summary PROCEDURES PERFORMED DURING STAY: [None]. DISCHARGE DIAGNOSES: 1. Pneumonia 2. HTN 3. Thalassemia COMPLICATIONS/CHIEF COMPLAINT: Pneumonia HOSPITAL COURSE: 81-year old female presents for two day history of fevers, chills, generalized weakness and fatigue. TMax at home 101.3. Patient also reported cough productive of clear sputum. Patient had recent procedure on right middle finger for nodule excision (local anaesthesia) also had eye surgery one week ago for macular degeneration. Patient admitted for pneumonia, treated with IV antimicrobial therapy. Patient responded well to therapy. Cultures unrevealing. Discharged home with oral antibiotics and outpatient follow up. Hospital stay unremarkable. DISCHARGE MEDICATIONS: Please see below. ALLERGIES: Please see below. PHYSICAL EXAMINATION ON DISCHARGE: VITAL SIGNS: Please see below. GENERAL: NAD HEENT: NC/AT, EOMI, PERRL NECK: supple CARDIOVASCULAR EXAMINATION: +S1S2, RRR RESPIRATORY EXAMINATION: CTA B/L ABDOMINAL EXAMINATION: soft, NT, +BS EXTREMITIES: no edema PSYCHIATRIC EXAMINATION: AAOx3 LABORATORY DATA: Please see below. ACTIVITY: [As tolerated]. DIET: 2 gram sodium DISPOSITION: 01 Home, Self-Care. DISCHARGE INSTRUCTIONS: 1. Follow up PCP in 3-5 days. ITEMS TO FOLLOWUP ON ON OUTPATIENT: 1. Follow up blood pressure. DISCHARGE CONDITION: [Stable]. TIME SPENT ON DISCHARGE: Greater than 30 minutes. Vital Signs/I&Os Vital Signs Date Time Temp Pulse Resp B/P (MAP) Pulse Ox O2 Delivery O2 Flow Rate FiO2 01/20/17 09:11 156/86 01/20/17 09:10 69 01/20/17 06:00 98.1 16 97 Room Air 01/18/17 08:00 I&O- Last 24 Hours up to 6 AM 01/20/17 06:00 Intake Total 1610 ml Output Total 50 ml Balance 1560 ml Laboratory Data Labs 24H Laboratory Tests 2 01/20/17 06:11: Anion Gap 7L, Glomerular Filtration Rate > 60.0, Blood Urea Nitrogen 11, Creatinine 0.59, Sodium Level 135L, Potassium Level 4.1, Chloride Level 99, Carbon Dioxide Level 29, Calcium Level 8.6L, Magnesium Level 2.3, C-Reactive Protein, Quantitative 7.30H CBC/BMP Laboratory Tests 01/20/17 06:11 Red Blood Count 4.67, Mean Corpuscular Volume 62.0 L, Mean Corpuscular Hemoglobin 19.4 L, Mean Corpuscular Hemoglobin Concent 31.2 L, Red Cell Distribution Width 13.2, Calcium Level 8.6 L Microbiology Microbiology 01/15/17 Blood Culture - Preliminary, Resulted No Growth after 72 hours. All specime... 01/15/17 Blood Culture - Preliminary, Resulted No Growth after 72 hours. All specime... 01/17/17 Gram Stain - Final, Complete 01/17/17 Sputum Culture - Final, Complete 01/15/17 Respiratory Virus Panel (PCR) ([facility]) - Final, Complete 01/15/17 Urine Culture - Final, Complete Discharge Medications Scheduled Doxycycline Hyclate (Doxycycline Hyclate) 100 Mg Tab, 100 MG PO BID Guaifenesin (Mucinex) 600 Mg Tab, 600 MG PO BID Lisinopril (Lisinopril) 2.5 Mg Tab, 1 TAB PO DAILY, (Reported) Metoprolol Tartrate (Metoprolol Tartrate) 50 Mg Tab, 1 TAB PO DAILY, (Reported) Scheduled PRN Acetaminophen/Hydrocodone (Hydrocodone/Acetaminophen 5-325 mg) 1 Tab Tab, 1 TAB PO Q6H PRN for PAIN, (Reported) Polyethylene Glycol (Systane 0.4-0.3 %) 15 Ml Loreta, 1 DROP OU ASDIRECTED PRN for DRY EYES, (Reported) Allergies Coded Allergies: Moxifloxacin (Verified Allergy, Severe, tingling in fingers, 01/15/17) Penicillins (Verified Allergy, Unknown, 01/15/17) BARBARA CASTRO MD Jan 20, 2017 11:13
== END 2017-01-20 10:30 | disposition home health service (06) | DRG 194 ==
LOC: M ED 18:29 → M ED INP 22:15 → M MS5PR 01-16 00:48
PROVIDERS: ADMIT Hospitalist; ATTEND Internal Medicine
DX: J18.9 Pneumonia, unspecified organism (principal); E87.1 Hypo-osmolality and hyponatremia; D56.9 Thalassemia, unspecified; I16.0 Hypertensive urgency; Z88.0 Allergy status to penicillin; Z88.1 Allergy status to other antibiotic agents; Z79.899 Other long term (current) drug therapy; Z83.3 Family history of diabetes mellitus; Z80.49 Family history of malignant neoplasm of other genital organs; Z87.891 Personal history of nicotine dependence; Y95 Nosocomial condition

== ENCOUNTER → 2017-03-22 | Outpatient (REF) | payer MEDICARE ==
[~2017-03-22] MED LIST: DOXY100T2 PO; HYDR-3713 PO; LISI2.5T3 PO; METO50TA7 PO; MUCI600T31 PO; SYST1SOL OU
[2017-03-23 12:42] LABS: BASO # 0.1 10^3/uL (0.0-0.2); BASO % 0.5 % (0.0-1.0); EOS # 0.1 10^3/uL (0.0-0.50); EOS % 1.5 % (0.0-3.0); IMMATURE GRANULOCYTE % 0.4 % (0-0); LYMPH # 2.4 10^3/uL (1.5-4.5); LYMPH % 26.6 % (24.0-44.0); MEAN CORPUSCULAR HEMOGLOBIN 18.7 pg (27.0-33.0); MEAN CORPUSCULAR HGB CONC 29.9 g/dl (32.0-36.5); MONO # 0.8 10^3/uL (0.0-0.8); MONO % 8.9 % (0.0-5.0); NEUTROPHILS # 5.7 10^3/uL (1.8-7.7); NEUTROPHILS % 62.1 % (36.0-66.0); PLATELET COUNT, AUTOMATED 261 10^3/uL (150-450); RED CELL DISTRIBUTION WIDTH 17.4 % (11.5-14.5); WHITE BLOOD COUNT 9.1 10^3/uL (4.0-10.0)
[2017-03-23 12:48] LABS: ADD MORPHOLOGY? YES; MEAN CORPUSCULAR VOLUME 62.3 fl (80.0-96.0)
[2017-03-23 13:18] LABS: ALBUMIN 3.9 GM/DL (3.2-5.2); ALBUMIN/GLOBULIN RATIO 1.18 (1.00-1.93); ALKALINE PHOSPHATASE 79 U/L (45-117); ALT/SGPT 33 U/L (12-78); ANION GAP 5 MEQ/L (8-16); AST/SGOT 24 U/L (15-37); BILIRUBIN,TOTAL 0.4 MG/DL (0.2-1.0); BLOOD UREA NITROGEN 15 MG/DL (7-18); CALCIUM LEVEL 9.2 MG/DL (8.8-10.2); CARBON DIOXIDE LEVEL 32 MEQ/L (21-32); CHLORIDE LEVEL 104 MEQ/L (98-107); CREATININE FOR GFR 0.75 MG/DL (0.55-1.02); GLOMERULAR FILTRATION RATE > 60.0 (>32); GLUCOSE, FASTING 93 MG/DL (83-110); POTASSIUM SERUM 4.1 MEQ/L (3.5-5.1); SODIUM LEVEL 141 MEQ/L (136-145); TOTAL PROTEIN 7.2 GM/DL (6.4-8.2)
[2017-03-23 13:19] LABS: MICROCYTOSIS 3+
[2017-03-23 13:20] LABS: POIKILOCYTOSIS 1+
== END ==
LOC: M SFHCCLAY 15:23
PROVIDERS: ATTEND Family Medicine
DX: D56.9 Thalassemia, unspecified (principal)
CPT/HCPCS: 80053; 83540; 85025; G0463

== ENCOUNTER → 2017-10-26 | Outpatient (REF) | payer MEDICARE ==
[2017-10-26 16:38] LABS: BASO % 0.4 % (0.0-1.0); EOS # 0.1 10^3/uL (0.0-0.50); EOS % 1.6 % (0.0-3.0); HEMATOCRIT 37.7 % (36.0-47.0); HEMOGLOBIN 11.7 g/dl (12.0-15.5); IMMATURE GRANULOCYTE % 0.4 % (0-3.0); LYMPH # 2.2 10^3/uL (1.5-4.5); MEAN CORPUSCULAR HEMOGLOBIN 19.4 pg (27.0-33.0); MEAN CORPUSCULAR VOLUME 62.6 fl (80.0-96.0); MONO # 0.8 10^3/uL (0.0-0.8); NEUTROPHILS # 4.7 10^3/uL (1.8-7.7); NEUTROPHILS % 59.6 % (36.0-66.0); PLATELET COUNT, AUTOMATED 357 10^3/uL (150-450); RED BLOOD COUNT 6.02 10^6/uL (4.00-5.40); RED CELL DISTRIBUTION WIDTH 16.1 % (11.5-14.5); WHITE BLOOD COUNT 7.9 10^3/uL (4.0-10.0)
[2017-10-26 16:56] LABS: ALBUMIN/GLOBULIN RATIO 1.18 (1.00-1.93); ALKALINE PHOSPHATASE 81 U/L (45-117); ALT/SGPT 27 U/L (12-78); ANION GAP 7 MEQ/L (8-16); AST/SGOT 27 U/L (7-37); BILIRUBIN,TOTAL 0.4 MG/DL (0.2-1.0); BLOOD UREA NITROGEN 14 MG/DL (7-18); CALCIUM LEVEL 9.5 MG/DL (8.8-10.2); CARBON DIOXIDE LEVEL 31 MEQ/L (21-32); CHLORIDE LEVEL 106 MEQ/L (98-107); CREATININE FOR GFR 0.71 MG/DL (0.55-1.30); GLOMERULAR FILTRATION RATE > 60.0 (>32); GLUCOSE, FASTING 99 MG/DL (70-100); POTASSIUM SERUM 4.3 MEQ/L (3.5-5.1); SODIUM LEVEL 144 MEQ/L (136-145); TOTAL PROTEIN 7.4 GM/DL (6.4-8.2)
== END ==
LOC: M SFHCCLAY 09:58
DX: D56.9 Thalassemia, unspecified (principal); I10 Essential (primary) hypertension
CPT/HCPCS: 80053

== ENCOUNTER → 2018-04-29 | Outpatient (REF) | payer MEDICARE ==
[2018-04-29 11:41] LABS: BASO % 0.4 % (0.0-1.0); EOS # 0.2 10^3/uL (0.0-0.50); EOS % 2.2 % (0.0-3.0); HEMATOCRIT 38.7 % (36.0-47.0); HEMOGLOBIN 11.6 g/dl (12.0-15.5); IMMATURE GRANULOCYTE % 0.4 % (0-3.0); LYMPH # 1.8 10^3/uL (1.5-4.5); LYMPH % 26.9 % (24.0-44.0); MEAN CORPUSCULAR HEMOGLOBIN 19.2 pg (27.0-33.0); MEAN CORPUSCULAR VOLUME 64.1 fl (80.0-96.0); MONO # 0.6 10^3/uL (0.0-0.8); MONO % 8.8 % (0.0-5.0); NEUTROPHILS # 4.2 10^3/uL (1.8-7.7); NEUTROPHILS % 61.3 % (36.0-66.0); PLATELET COUNT, AUTOMATED 366 10^3/uL (150-450); RED BLOOD COUNT 6.04 10^6/uL (4.00-5.40); RED CELL DISTRIBUTION WIDTH 15.2 % (11.5-14.5); WHITE BLOOD COUNT 6.8 10^3/uL (4.0-10.0)
[2018-04-29 12:02] LABS: ALBUMIN 4.1 GM/DL (3.2-5.2); ALBUMIN/GLOBULIN RATIO 1.32 (1.00-1.93); ALKALINE PHOSPHATASE 81 U/L (45-117); ALT/SGPT 27 U/L (12-78); ANION GAP 6 MEQ/L (8-16); AST/SGOT 22 U/L (7-37); BILIRUBIN,TOTAL 0.5 MG/DL (0.2-1.0); BLOOD UREA NITROGEN 12 MG/DL (7-18); CALCIUM LEVEL 9.4 MG/DL (8.8-10.2); CARBON DIOXIDE LEVEL 30 MEQ/L (21-32); CHLORIDE LEVEL 106 MEQ/L (98-107); CREATININE FOR GFR 0.74 MG/DL (0.55-1.30); GLOMERULAR FILTRATION RATE > 60.0 (>32); GLUCOSE, FASTING 133 MG/DL (70-100); SODIUM LEVEL 142 MEQ/L (136-145); TOTAL PROTEIN 7.2 GM/DL (6.4-8.2)
== END ==
LOC: M SFHCCLAY 07:55
DX: D56.9 Thalassemia, unspecified (principal)
CPT/HCPCS: 80053

== ENCOUNTER → 2018-11-03 | Outpatient (REF) | payer MEDICARE ==
[~2018-11-03] MED LIST changes: +LISI-1046 PO; -LISI2.5T3 PO
[2018-11-03 11:28] LABS: BASO # 0.1 10^3/uL (0.0-0.2); BASO % 0.8 % (0.0-1.0); EOS # 0.2 10^3/uL (0.0-0.50); EOS % 2.3 % (0.0-3.0); HEMATOCRIT 42.1 % (36.0-47.0); HEMOGLOBIN 12.5 g/dl (12.0-15.5); LYMPH # 2.3 10^3/uL (1.5-4.5); LYMPH % 29.4 % (24.0-44.0); MEAN CORPUSCULAR HEMOGLOBIN 19.1 pg (27.0-33.0); MEAN CORPUSCULAR HGB CONC 29.7 g/dl (32.0-36.5); MEAN CORPUSCULAR VOLUME 64.2 fl (80.0-96.0); MONO # 0.7 10^3/uL (0.0-0.8); MONO % 8.6 % (0.0-5.0); NEUTROPHILS # 4.5 10^3/uL (1.8-7.7); NEUTROPHILS % 58.5 % (36.0-66.0); PLATELET COUNT, AUTOMATED 383 10^3/uL (150-450); RED BLOOD COUNT 6.56 10^6/uL (4.00-5.40); WHITE BLOOD COUNT 7.7 10^3/uL (4.0-10.0)
[2018-11-03 12:09] LABS: ALBUMIN 4.6 GM/DL (3.2-5.2); ALT/SGPT 35 U/L (12-78); BILIRUBIN,TOTAL 0.6 MG/DL (0.2-1.0); BLOOD UREA NITROGEN 16 MG/DL (7-18); CALCIUM LEVEL 9.8 MG/DL (8.8-10.2); CARBON DIOXIDE LEVEL 32 MEQ/L (21-32); CHLORIDE LEVEL 102 MEQ/L (98-107); CREATININE FOR GFR 0.83 MG/DL (0.55-1.30); GLOMERULAR FILTRATION RATE > 60.0 (>32); GLUCOSE, FASTING 114 MG/DL (70-100); POTASSIUM SERUM 3.7 MEQ/L (3.5-5.1); SODIUM LEVEL 140 MEQ/L (136-145); TOTAL PROTEIN 8.3 GM/DL (6.4-8.2)
== END ==
LOC: M SFHCCLAY 08:17
PROVIDERS: ATTEND Family Medicine
DX: I10 Essential (primary) hypertension (principal); D56.9 Thalassemia, unspecified
CPT/HCPCS: 80053; 85025; G0463

== ENCOUNTER → 2019-11-07 | Outpatient (REF) | payer MEDICARE ==
[~2019-11-07] MED LIST changes: -LISI-1046 PO; +LISI2.5T2 PO
== END ==
LOC: M SFHCCLAY 08:23
PROVIDERS: ATTEND Family Medicine
DX: I10 Essential (primary) hypertension (principal); D56.9 Thalassemia, unspecified

== ENCOUNTER → 2020-11-12 | Outpatient (REF) | payer MEDICARE ==
[2020-11-12 11:56] LABS: BASO % 0.5 % (0.0-1.0); EOS # 0.2 10^3/uL (0.0-0.5); EOS % 2.1 % (0.0-3.0); HEMATOCRIT 40.8 % (36.0-47.0); HEMOGLOBIN 11.9 g/dl (12.0-15.5); LYMPH # 1.7 10^3/uL (1.5-5.0); LYMPH % 20.7 % (24.0-44.0); MEAN CORPUSCULAR HEMOGLOBIN 18.8 pg (27.0-33.0); MEAN CORPUSCULAR HGB CONC 29.2 g/dl (32.0-36.5); MEAN CORPUSCULAR VOLUME 64.4 fl (80.0-96.0); MONO # 0.8 10^3/uL (0.0-0.8); NEUTROPHILS # 5.5 10^3/uL (1.5-8.5); NEUTROPHILS % 66.3 % (36.0-66.0); PLATELET COUNT, AUTOMATED 346 10^3/uL (150-450); RED BLOOD COUNT 6.34 10^6/uL (4.00-5.40); WHITE BLOOD COUNT 8.3 10^3/uL (4.0-10.0)
[2020-11-12 12:29] LABS: ALBUMIN 3.9 GM/DL (3.2-5.2); ALT/SGPT 19 U/L (12-78); BILIRUBIN,TOTAL 0.6 MG/DL (0.2-1.0); BLOOD UREA NITROGEN 16 MG/DL (7-18); CALCIUM LEVEL 9.8 MG/DL (8.8-10.2); CARBON DIOXIDE LEVEL 33 MEQ/L (21-32); CHLORIDE LEVEL 105 MEQ/L (98-107); CHOLESTEROL LEVEL 211 MG/DL (<200); CHOLESTEROL RISK RATIO 3.836 (<5); CREATININE FOR GFR 0.69 MG/DL (0.55-1.30); GLOMERULAR FILTRATION RATE > 60.0 (>32); GLUCOSE, FASTING 138 MG/DL (70-100); HDL CHOLESTEROL 55 MG/DL (>40); LDL CHOLESTEROL 122 MG/DL (<100); NON-HDL-C 156 MG/DL; POTASSIUM SERUM 4.3 MEQ/L (3.5-5.1); SODIUM LEVEL 141 MEQ/L (136-145); TOTAL PROTEIN 7.1 GM/DL (6.4-8.2); TRIGLYCERIDES LEVEL 171 MG/DL (<150)
== END ==
LOC: M SFHCCLAY 08:19
PROVIDERS: ATTEND Family Medicine
DX: E55.9 Vitamin D deficiency, unspecified (principal); D56.9 Thalassemia, unspecified; I10 Essential (primary) hypertension
CPT/HCPCS: 80053; 80061; 82652; 85025; G0463

== ENCOUNTER → 2020-12-10 | Outpatient (REF) | payer MEDICARE ==
[2020-12-10 12:51] LABS: BLOOD UREA NITROGEN 15 MG/DL (7-18); CALCIUM LEVEL 9.1 MG/DL (8.8-10.2); CARBON DIOXIDE LEVEL 30 MEQ/L (21-32); CHLORIDE LEVEL 106 MEQ/L (98-107); CREATININE FOR GFR 0.73 MG/DL (0.55-1.30); GLOMERULAR FILTRATION RATE > 60.0 (>32); GLUCOSE, FASTING 147 MG/DL (70-100); POTASSIUM SERUM 4.3 MEQ/L (3.5-5.1); SODIUM LEVEL 141 MEQ/L (136-145)
== END ==
LOC: M LABDRAWC 11:13
DX: R06.00 Dyspnea, unspecified (principal); R07.9 Chest pain, unspecified; I10 Essential (primary) hypertension

== ENCOUNTER → 2021-05-28 | Outpatient (CLI) | payer MEDICARE ==
[~2021-05-28] MED LIST changes: -LISI2.5T2 PO; +LISI2.5T9 PO
--- NOTE | 2021-05-28 14:50 | REP ---
INDICATION: INJURY OF LEFT FOREARM. COMPARISON: None. TECHNIQUE: AP and lateral views FINDINGS: There is no acute fracture or destructive osseous lesion. IMPRESSION: No acute osseous abnormality. <Electronically signed by Satnam Guerrero > 05/28/21 0827
== END ==
LOC: M CLY 14:29
PROVIDERS: ATTEND Physician Assistant
DX: S59.912A Unspecified injury of left forearm, initial encounter (principal); W10.9XXA Fall (on) (from) unspecified stairs and steps, initial encounter; Y92.9 Unspecified place or not applicable; Y99.9 Unspecified external cause status
CPT/HCPCS: 73090; G0463

== ENCOUNTER → 2021-07-09 | Outpatient (CLI) | payer SELFPAY | LOC: M LABSMTC 09:11 | PROVIDERS: ATTEND Pediatrics | DX: Z20.822 Contact with and (suspected) exposure to COVID-19 (principal) ==

== ENCOUNTER → 2022-03-05 | Outpatient (REF) | payer MEDICARE ==
[2022-03-05 17:57] LABS: PERCENT SATURATION 23.1 % (13.2-45.0)
== END ==
LOC: M SFHCCLAY 10:15
PROVIDERS: ATTEND Family Medicine
DX: D64.9 Anemia, unspecified (principal)

== ENCOUNTER → 2022-06-04 | Outpatient (REF) | payer MEDICARE ==
[2022-06-04 18:28] LABS: BASO # 0.1 10^3/uL (0.0-0.2); BASO % 0.5 % (0.0-1.0); EOS # 0.2 10^3/uL (0.0-0.5); EOS % 1.5 % (0.0-3.0); HEMATOCRIT 35.5 % (36.0-47.0); HEMOGLOBIN 10.5 g/dl (12.0-15.5); LYMPH # 1.8 10^3/uL (1.5-5.0); LYMPH % 15.5 % (24.0-44.0); MEAN CORPUSCULAR HEMOGLOBIN 18.8 pg (27.0-33.0); MEAN CORPUSCULAR HGB CONC 29.6 g/dl (32.0-36.5); MEAN CORPUSCULAR VOLUME 63.6 fl (80.0-96.0); MONO # 1.1 10^3/uL (0.0-0.8); MONO % 9.2 % (2.0-8.0); NEUTROPHILS # 8.6 10^3/uL (1.5-8.5); NEUTROPHILS % 72.6 % (36.0-66.0); PLATELET COUNT, AUTOMATED 409 10^3/uL (150-450); RED BLOOD COUNT 5.58 10^6/uL (4.00-5.40); WHITE BLOOD COUNT 11.8 10^3/uL (4.0-10.0)
[2022-06-04 19:00] LABS: IRON (FE) 48 UG/DL (50-170)
[2022-06-04 19:02] LABS: ALBUMIN 3.8 G/DL (3.2-5.2); ALKALINE PHOSPHATASE 90 U/L (46-116); ALT/SGPT 22 U/L (7.0-40); AST/SGOT 19 U/L (<34); BILIRUBIN,TOTAL 0.4 MG/DL (0.3-1.2); BLOOD UREA NITROGEN 19 MG/DL (9-23); CALCIUM LEVEL 9.3 MG/DL (8.3-10.6); CARBON DIOXIDE LEVEL 30 MMOL/L (20-31); CHLORIDE LEVEL 102 MMOL/L (98-107); CHOLESTEROL LEVEL 176 MG/DL (<200); CHOLESTEROL RISK RATIO 3.61 (<5); CREATININE FOR GFR 0.74 MG/DL (0.55-1.30); GLOMERULAR FILTRATION RATE > 60.0 (>32); GLUCOSE, FASTING 117 MG/DL (74-106); HDL CHOLESTEROL 48.7 MG/DL (>40); LDL CHOLESTEROL 94.5 MG/DL (<100); NON-HDL-C 127 MG/DL; POTASSIUM SERUM 5.1 MMOL/L (3.5-5.1); SODIUM LEVEL 139 MMOL/L (136-145); TOTAL PROTEIN 7.1 G/DL (5.7-8.2); TRIGLYCERIDES LEVEL 164 MG/DL (<150)
== END ==
LOC: M SFHCCLAY 11:33
PROVIDERS: ATTEND Family Medicine
DX: I10 Essential (primary) hypertension (principal); D64.9 Anemia, unspecified; E55.9 Vitamin D deficiency, unspecified

== ENCOUNTER → 2022-09-03 | Outpatient (REF) | payer MEDICARE ==
[2022-09-03 18:08] LABS: BASO # 0.1 10^3/uL (0.0-0.2); BASO % 0.5 % (0.0-1.0); EOS # 0.2 10^3/uL (0.0-0.5); EOS % 2.5 % (0.0-3.0); HEMATOCRIT 39.3 % (36.0-47.0); HEMOGLOBIN 11.4 g/dl (12.0-15.5); LYMPH # 1.7 10^3/uL (1.5-5.0); LYMPH % 18.1 % (24.0-44.0); MEAN CORPUSCULAR HEMOGLOBIN 18.5 pg (27.0-33.0); MEAN CORPUSCULAR VOLUME 63.8 fl (80.0-96.0); MONO # 0.8 10^3/uL (0.0-0.8); MONO % 9.1 % (2.0-8.0); NEUTROPHILS # 6.3 10^3/uL (1.5-8.5); NEUTROPHILS % 69.4 % (36.0-66.0); PLATELET COUNT, AUTOMATED 394 10^3/uL (150-450); RED BLOOD COUNT 6.16 10^6/uL (4.00-5.40); WHITE BLOOD COUNT 9.1 10^3/uL (4.0-10.0)
[2022-09-03 18:37] LABS: IRON (FE) 58 UG/DL (50-170)
[2022-09-03 18:40] LABS: ALBUMIN 3.7 G/DL (3.2-5.2); ALKALINE PHOSPHATASE 96 U/L (46-116); ALT/SGPT 19 U/L (7.0-40); AST/SGOT 23 U/L (<34); BILIRUBIN,TOTAL 0.4 MG/DL (0.3-1.2); BLOOD UREA NITROGEN 16 MG/DL (9-23); CALCIUM LEVEL 9.3 MG/DL (8.3-10.6); CARBON DIOXIDE LEVEL 30 MMOL/L (20-31); CHLORIDE LEVEL 101 MMOL/L (98-107); CREATININE FOR GFR 0.72 MG/DL (0.55-1.30); GLOMERULAR FILTRATION RATE > 60.0 (>32); GLUCOSE, FASTING 112 MG/DL (74-106); POTASSIUM SERUM 4.7 MMOL/L (3.5-5.1); SODIUM LEVEL 138 MMOL/L (136-145)
== END ==
LOC: M SFHCCLAY 10:56
PROVIDERS: ATTEND Family Medicine
DX: D64.9 Anemia, unspecified (principal); I10 Essential (primary) hypertension

== ENCOUNTER → 2023-04-14 | Outpatient (REF) | payer MEDICARE | LOC: M SFHCCLAY 09:08 | PROVIDERS: ATTEND Physician Assistant | DX: R50.9 Fever, unspecified (principal) ==